=== PATIENT | female | born 1960 | race African-American/Black ===

== ENCOUNTER 2016-12-04 15:01 | Emergency (ER) | payer MEDICARE, OTHER ==
[~2016-12-04] VITALS: Ht 162.6 cm; Wt 136.1 kg
[~2016-12-04 15:01] MED LIST: ACET-704 PO; AMLO10TA2 PO; CARB200T4 PO; GABA-586 PO; VORTIOXETINE 10 MG
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
[2016-12-04] MEDS ORDERED: IV NORMAL SALINE 1000ML BAG 1,000 ML IV ONE (15:45)
[2016-12-04 15:55] LABS: BASO % 1 % (0-3); EOS % 0 % (0-3); HEMATOCRIT 45.7 % (36.0-47.0); HEMOGLOBIN 15.3 g/dL (12.0-15.5); LYMPH % 20 % (24-48); MEAN CORPUSCULAR HEMOGLOBIN 31 pg (25-35); MEAN CORPUSCULAR HGB CONC 33 g/dL (31-37); MEAN CORPUSCULAR VOLUME 94 fL (79-100); MONO % 7 % (0-9); NEUT % 72 % (31-73); PLATELET COUNT 243 x10^3/uL (140-400); RED BLOOD COUNT 4.85 x10^6/uL (3.50-5.40); RED CELL DISTRIBUTION WIDTH 14.8 % (11.5-14.5); WHITE BLOOD COUNT 4.8 x10^3/uL (4.0-11.0)
--- NOTE | 2016-12-04 16:03 | EKG ---
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
[2016-12-04 16:08] LABS: CALCIUM 8.6 mg/dL (8.5-10.1); CREATININE 0.8 mg/dL (0.6-1.0); GFR 90.1; POTASSIUM 3.8 mmol/L (3.5-5.1)
[2016-12-04 16:14] LABS: ALBUMIN 3.3 g/dL (3.4-5.0); ALBUMIN/GLOBULIN RATIO 0.8 (1.0-1.7); TOTAL BILIRUBIN 0.2 mg/dL (0.2-1.0); TOTAL PROTEIN 7.3 g/dL (6.4-8.2)
[2016-12-04 16:41] LABS: NEG OBC UR NEG; POS OBC UR POS
[2016-12-04 16:42] LABS: BILIRUBIN,URINE NEGATIVE (NEG); GLUCOSE,URINE NEGATIVE (NEG); NITRITE,URINE NEGATIVE (NEG); PROTEIN,URINE 30 mg/dL (NEG-TRACE); UROBILINOGEN,URINE 0.2 mg/dL (0.2 mg/dL)
[2016-12-04] MEDS ORDERED: CARBAMAZEPINE 200 MG TABLET. PO ONE (16:45)
[2016-12-04 16:46] LABS: BARBITURATES NEG (NEG); BENZODIAZEPINES NEG (NEG); CANNABINOIDS NEG (NEG); COCAINE NEG (NEG); METHADONE NEG (NEG); OPIATES NEG (NEG); PHENCYCLIDINE NEG (NEG)
[2016-12-04] MEDS ORDERED: CARB200T4 PO (16:49)
[2016-12-04 16:50] LABS: RBC,URINE 0 /HPF (0-2)
[2016-12-04 16:51] LABS: BACTERIA,URINE MANY /HPF (0-FEW); SQUAMOUS EPITHELIAL CELL,UR MANY /LPF
[2016-12-04 17:38] LABS: ETHANOL, URINE NEG (NEG)
[2016-12-04 17:51] VITALS: BP 143/93
== END 2016-12-04 18:03 | disposition home or self-care (01) ==
LOC: ER 15:01
DX: F41.9 Anxiety disorder, unspecified (principal); F32.9 Major depressive disorder, single episode, unspecified; E11.9 Type 2 diabetes mellitus without complications; I10 Essential (primary) hypertension
CPT/HCPCS: 36415; 80053; 80156; 81001; 81025; 83605; 84484; 85027; 93005; 96360; 99285; G0481; J7030

== ENCOUNTER 2017-06-16 17:16 | Emergency (ER) | payer MEDICARE, OTHER ==
[~2017-06-16] VITALS: Ht 152.4 cm; Wt 136.1 kg
[2017-06-16] MEDS ORDERED: diphenhydrAMINE 50 MG/ML VIAL IVP ONE (17:45)
[2017-06-16] MEDS ORDERED: PROCHLORPERAZINE 10 MG/2 ML VIAL. IV ONE (17:45)
[2017-06-16] MEDS ORDERED: IV NORMAL SALINE 1000ML BAG 1,000 ML IV ONE (17:45)
[2017-06-16] MEDS ORDERED: fentaNYL PF VIAL 100 MCG/2 ML VIAL IV ONE (17:45)
--- NOTE | 2017-06-16 17:54 | PHYS DOC ---
Past Medical History Past Medical History: Anxiety, Depression, Hypertension, Seizure Additional Past Medical Histor: stutter Past Surgical History: Hysterectomy, Tonsillectomy, Tubal ligation, Other Additional Past Surgical Histo: gall stone removal Alcohol Use: None Drug Use: None Adult General Chief Complaint Chief Complaint: HEADACHE HPI HPI Patient is a 56 year old female who is brought by EMS with the complaint of headache and left ankle pain. Patient states she has had this headache for about 4 days. It comes and goes. She's had some associated nausea and one episode of vomiting. She's had headaches like this before. Her concern is that if she cannot get rid of the headache, sometimes it makes her have a seizure. She does have a seizure disorder and takes gabapentin and Tegretol. She has not run out of her meds or quit taking them for any reason. Her last seizure was about 2 years ago. She does not drive. Also complains of left ankle pain. She does not recall injuring her ankle. She thinks it was fine when she went to bed last night. This morning, when she is getting out of bed and put her weight on it, it hurt significantly. She also complains of left ankle swelling. She's never had problems with her ankle in the past. She does have chronic knee pain and takes ibuprofen for that. PCP Dr. Giles Review of Systems Review of Systems Constitutional: She has had some chills Eyes: Denies change in visual acuity, redness, or eye pain [] HENT: She has had a sore throat attributed to having a fan on her while she was having her hair done 2 weeks ago Respiratory: Denies cough or shortness of breath [] Cardiovascular: Denies chest pain GI: Denies abdominal pain, nausea, vomiting, bloody stools or diarrhea [] : Denies dysuria or hematuria [] Musculoskeletal: As in history of present illness Integument: Denies rash or skin lesions [] Neurologic: As in history of present illness Current Medications Current Medications Current Medications Medications (Trade) Dose Ordered Sig/Tonia Start Time Stop Time Status Last Admin Dose Admin Diphenhydramine HCl (Benadryl) 25 mg 1X ONCE 06/16/17 17:45 06/16/17 17:46 DC 06/16/17 17:48 25 MG Fentanyl Citrate (Fentanyl 2ml Vial) 75 mcg 1X ONCE 7/16/17 17:45 06/16/17 17:46 DC 06/16/17 17:48 75 MCG Hydralazine HCl (Apresoline) 10 mg 1X ONCE 06/16/17 19:00 06/16/17 19:01 UNV Prochlorperazine Edisylate (Compazine) 10 mg 1X ONCE 06/16/17 17:45 06/16/17 17:46 DC 06/16/17 17:48 10 MG Sodium Chloride 1,000 ml @ 1,000 mls/hr 1X ONCE 06/16/17 17:45 06/16/17 18:44 DC 06/16/17 17:47 1,000 MLS/HR Allergies Allergies Allergies Coded Allergies Type Severity Reaction Last Updated Verified No Known Drug Allergies 08/25/14 No Physical Exam Physical Exam Constitutional: Obese female, alert and mentating normally, no acute distress, does not appear photophobic HENT: Normocephalic, atraumatic, bilateral external ears normal, nose normal. [] Eyes: conjunctiva normal, no discharge. [] Neck: Normal range of motion, no stridor. [] Cardiovascular:Heart rate regular rhythm, no murmur [] Lungs & Thorax: Bilateral breath sounds clear to auscultation [] Abdomen: Bowel sounds normal, soft, no tenderness, no masses, no pulsatile masses. [] Skin: Warm, dry, no erythema, no rash. [] Extremities: Left lower extremity: Knee, calf unremarkable. Patient is morbidly obese and has very large legs including the lower leg, but it does not appear asymmetrical and there is no evidence of "swelling". Left ankle does not appear swollen. It is not warm, not red. There are no skin changes overlying. Some tenderness of the lateral aspect. Foot is unremarkable without swelling, redness , or warmth. No evidence of cellulitis of the foot or ankle. Neurologic: Alert and oriented X 3, normal motor function, normal sensory function, no focal deficits noted. [] Current Patient Data Vital Signs Vital Signs Date Time Temp Pulse Resp B/P (MAP) Pulse Ox O2 Delivery O2 Flow Rate FiO2 06/16/17 17:48 18 96 Room Air 06/16/17 17:20 98.2 81 181/108 (132) 98.2 EKG EKG [] Radiology/Procedures Radiology/Procedures Three-view x-ray of the left ankle read by me. No acute bony abnormality. [] Course & Med Decision Making Course & Med Decision Making Pertinent Labs and Imaging studies reviewed. (See chart for details) 56-year-old male comes by EMS for a headache off and on for the last 4 days and left ankle pain. The patient is alert and joking, appears entirely nontoxic. States she takes a medicine" because people get on my nerves". I advised the patient we could try some IV fluids, some IV headache medication and check out her ankle with some x-rays and she is happy with that plan. 184 recheck patient. She is watching TV, appears comfortable. She states her headache is gone. Her blood pressure remains elevated at 202/104. She is on blood pressure medication and states that she has not run out of it. We will get her blood pressure down a little bit prior to discharge so her blood pressure medication can work when she takes it at home. She is agreeable to that plan. [] Dragon Disclaimer Dragon Disclaimer This electronic medical record was generated, in whole or in part, using a voice recognition dictation system. Departure Departure Impression: Primary Impression: Headache Additional Impressions: Hypertension Left ankle pain Disposition: HOME, SELF-CARE Condition: STABLE Referrals: JO-ANN HDEZ MD (PCP) Patient Instructions: General Headache Without Cause, [id number] Additional Instructions: Today, we gave you some IV fluids and some medication for your headache. When it 's hot out like this, be sure that you're staying well hydrated. Sometimes being dehydrated can cause a headache. Your blood pressure was running high in the emergency department. Be sure you' re taking your blood pressure medications as prescribed. Follow-up with your doctor this week for recheck. Left ankle x-rays were normal. This means there is no bone problem that we could see. For pain, stay off of your ankle, use ice 15-20 minutes out of every 1-2 hours, if it continues to hurt after about a week, recheck with your doctor. Problem Qualifiers VERA ESPINOZA MD Jun 16, 2017 17:54
[2017-06-16] MEDS ORDERED: hydrALAZINE 20 MG/ML VIAL. IVP ONE (19:00)
[2017-06-16 19:15] VITALS: BP 200/99
--- NOTE | 2017-06-17 08:05 | RAD ---
EXAM: Left ankle 3 views. HISTORY: Ankle pain and swelling COMPARISON: None. FINDINGS: Three views of the left ankle are obtained. There is a lucency at the medial corner of the talar dome on the frontal projection. It is less well seen on the other projections. This suggests a subchondral cyst or an osteochondral lesion. There is narrowing of the joint space along the medial mortise with mild medial tilt of the talus. No fractures are identified. There is a prominent os trigonum. Mild soft tissue swelling is noted medially and laterally. IMPRESSION: 1. CT or MRI could assess for an osteochondral lesion versus osteoarthritis along the medial corner of the talar dome. 2. Prominent os trigonum. Correlate clinically.
== END 2017-06-16 19:25 | disposition home or self-care (01) ==
LOC: ER 17:16
DX: R51 Headache (principal); M25.572 Pain in left ankle and joints of left foot; I10 Essential (primary) hypertension; R11.2 Nausea with vomiting, unspecified; G89.29 Other chronic pain; F32.9 Major depressive disorder, single episode, unspecified; F41.9 Anxiety disorder, unspecified; Z90.710 Acquired absence of both cervix and uterus; Z98.51 Tubal ligation status
CPT/HCPCS: 73610; 96361; 96374; 96375; 99284; J0360; J0780; J1200; J3010; J7030

== ENCOUNTER 2017-08-30 18:55 | Emergency (ER) | payer OTHER ==
[~2017-08-30] VITALS: Ht 162.6 cm; Wt 145.1 kg
[2017-08-30 19:59] LABS: BASO % 0 % (0-3); EOS % 0 % (0-3); HEMATOCRIT 39.9 % (36.0-47.0); HEMOGLOBIN 12.8 g/dL (12.0-15.5); LYMPH # 1.9 x10^3/uL (1.0-4.8); LYMPH % 36 % (24-48); MEAN CORPUSCULAR HEMOGLOBIN 31 pg (25-35); MEAN CORPUSCULAR HGB CONC 32 g/dL (31-37); MEAN CORPUSCULAR VOLUME 96 fL (79-100); MONO % 12 % (0-9); NEUT % 52 % (31-73); PLATELET COUNT 311 x10^3/uL (140-400); RED BLOOD COUNT 4.17 x10^6/uL (3.50-5.40); RED CELL DISTRIBUTION WIDTH 14.3 % (11.5-14.5); WHITE BLOOD COUNT 5.3 x10^3/uL (4.0-11.0)
[2017-08-30 20:40] LABS: ANION GAP 7 (6-14); BLOOD UREA NITROGEN 17 mg/dL (7-20); BUN/CREATININE RATIO 15 (6-20); CALCIUM 8.7 mg/dL (8.5-10.1); CARBON DIOXIDE 31 mmol/L (21-32); CHLORIDE 104 mmol/L (98-107); CREATININE 1.1 mg/dL (0.6-1.0); GFR 62.4; GLUCOSE 111 mg/dL (70-99); POTASSIUM 3.8 mmol/L (3.5-5.1); SODIUM 142 mmol/L (136-145)
[2017-08-30 20:46] LABS: ALBUMIN 3.3 g/dL (3.4-5.0); ALBUMIN/GLOBULIN RATIO 0.8 (1.0-1.7); ALK PHOS 201 U/L (46-116); ALT (SGPT) 32 U/L (14-59); AST (SGOT) 28 U/L (15-37); TOTAL BILIRUBIN 0.1 mg/dL (0.2-1.0); TOTAL PROTEIN 7.7 g/dL (6.4-8.2)
[2017-08-30 21:00] VITALS: BP 187/88
--- NOTE | 2017-08-30 21:34 | PHYS DOC ---
Past Medical History Past Medical History: Anxiety, Depression, Hypertension, Seizure Additional Past Medical Histor: stutter Past Surgical History: Hysterectomy, Tonsillectomy, Tubal ligation, Other Additional Past Surgical Histo: gall stone removal Alcohol Use: None Drug Use: None Adult General Chief Complaint Chief Complaint: SEIZURE HPI HPI Patient is a 56 year old female who presents here today secondary to having a seizure earlier. Patient reports that she was visiting her son at [employer] she was trying to get him to meet her at some place that they have been together however she reports her son with a no-show when she got very upset about it. Patient reports that she thinks that triggered her seizure. Patient witnessed seizure by people at the [employer] as per EMS. Patient denies any symptomatology otherwise. Patient denies any recent fevers shakes chills nausea vomiting diarrhea chest pain shortness of breath cough cold rhinorrhea. Patient reports she has been compliant with her medications. Patient reports she does have a history seizure disorder in the past and usually it started when she gets upset. Review of systems Constitutional: Denies fever or chills Eyes: Denies change in visual acuity, redness, or eye pain All other review systems are negative except as documented in the history of present illness portion. Physical exam Constitutional: Well developed, well nourished, no acute distress, non-toxic appearance. HENT: Normocephalic, atraumatic, bilateral external ears normal, oropharynx moist, no oral exudates, nose normal. Eyes: conjunctiva normal, no discharge. Neck: Normal range of motion, no tenderness, supple, no stridor. Cardiovascular:Heart rate regular rhythm, Lungs & Thorax: Bilateral breath sounds clear to auscultation Abdomen: Bowel sounds normal, soft, no tenderness, no masses, no pulsatile masses. Skin: Warm, dry, Back: No tenderness, Extremities: No tenderness, no cyanosis, Neurologic: Alert and oriented X 3, normal motor function, normal sensory function, no focal deficits noted. Psychologic: Affect normal, judgement normal, mood normal. Assessment and plan This is a 56-year-old female who presents here today with a seizure disorder was likely triggered by anxiety and stress. Upon arrival to the ER the patient was alert awake and oriented 3 with no postictal phase. Patient's blood pressure was elevated and she did appear to be anxious. Patient has been tearful throughout the initial part of her evaluation. Patient was given 1 mg of IV Ativan with significant improvement in her anxiety and stress level. Patient's blood pressure initially was markedly elevated however after the Ativan was given the patient's blood pressure has improved significantly. Patient's currently resting comfortably in the ED, eating dinner, and feels well to go home. Patient's labs were all within normal limits. Patient normal CBC, PT, troponin, Tegretol level. Patient being discharged home in stable condition at this time. Current Medications Current Medications Current Medications Medications (Trade) Dose Ordered Sig/Tonia Start Time Stop Time Status Last Admin Dose Admin Lorazepam (Ativan) 1 mg 1X ONCE 08/30/17 19:45 08/30/17 19:46 DC 08/30/17 19:45 1 MG Allergies Allergies Allergies Coded Allergies Type Severity Reaction Last Updated Verified No Known Drug Allergies 08/25/14 No Current Patient Data Vital Signs Vital Signs Date Time Temp Pulse Resp B/P (MAP) Pulse Ox O2 Delivery O2 Flow Rate FiO2 08/30/17 19:05 98.1 98 18 230/127 (161) 98 Room Air 98.1 Lab Values Laboratory Tests Test 08/30/17 19:45 White Blood Count 5.3 x10^3/uL (4.0-11.0) Red Blood Count 4.17 x10^6/uL (3.50-5.40) Hemoglobin 12.8 g/dL (12.0-15.5) Hematocrit 39.9 % (36.0-47.0) Mean Corpuscular Volume 96 fL (79-100) Mean Corpuscular Hemoglobin 31 pg (25-35) Mean Corpuscular Hemoglobin Concent 32 g/dL (31-37) Red Cell Distribution Width 14.3 % (11.5-14.5) Platelet Count 311 x10^3/uL (140-400) Neutrophils (%) (Auto) 52 % (31-73) Lymphocytes (%) (Auto) 36 % (24-48) Monocytes (%) (Auto) 12 % (0-9) H Eosinophils (%) (Auto) 0 % (0-3) Basophils (%) (Auto) 0 % (0-3) Neutrophils # (Auto) 2.8 x10^3uL (1.8-7.7) Lymphocytes # (Auto) 1.9 x10^3/uL (1.0-4.8) Monocytes # (Auto) 0.6 x10^3/uL (0.0-1.1) Eosinophils # (Auto) 0.0 x10^3/uL (0.0-0.7) Basophils # (Auto) 0.0 x10^3/uL (0.0-0.2) Sodium Level 142 mmol/L (136-145) Potassium Level 3.8 mmol/L (3.5-5.1) Chloride Level 104 mmol/L (98-107) Carbon Dioxide Level 31 mmol/L (21-32) Anion Gap 7 (6-14) Blood Urea Nitrogen 17 mg/dL (7-20) Creatinine 1.1 mg/dL (0.6-1.0) H Estimated GFR (Cockcroft-Gault) 62.4 BUN/Creatinine Ratio 15 (6-20) Glucose Level 111 mg/dL (70-99) H Calcium Level 8.7 mg/dL (8.5-10.1) Total Bilirubin 0.1 mg/dL (0.2-1.0) L Aspartate Amino Transferase (AST) 28 U/L (15-37) Alanine Aminotransferase (ALT) 32 U/L (14-59) Alkaline Phosphatase 201 U/L (46-116) H Total Protein 7.7 g/dL (6.4-8.2) Albumin 3.3 g/dL (3.4-5.0) L Albumin/Globulin Ratio 0.8 (1.0-1.7) L Carbamazepine (Tegretol) Level 11.7 mcg/mL (4.0-12.0) Carbamazepine Last Dose Date Pending Carbamazepine Last Dose Time Pending Laboratory Tests 08/30/17 19:45 Laboratory Tests 08/30/17 19:45 EKG EKG [] Radiology/Procedures Radiology/Procedures [] Course & Med Decision Making Course & Med Decision Making Pertinent Labs and Imaging studies reviewed. (See chart for details) [] Dragon Disclaimer Dragon Disclaimer This electronic medical record was generated, in whole or in part, using a voice recognition dictation system. Departure Departure Impression: Primary Impression: Seizure Additional Impressions: Anxiety Hypertension Disposition: 01 HOME, SELF-CARE Condition: IMPROVED Referrals: JO-ANN HDEZ MD (PCP) Patient Instructions: Anxiety and Panic Attacks, Hypertension, Seizure Disorder , Child, Generalized Tonic-Clonic Problem Qualifiers GERRY FUCHS MD Aug 30, 2017 21:34
== END 2017-08-30 21:51 | disposition home or self-care (01) ==
LOC: ER 18:55
DX: R56.9 Unspecified convulsions (principal); F41.9 Anxiety disorder, unspecified; I10 Essential (primary) hypertension
CPT/HCPCS: 36415; 80053; 80156; 85025; 96374; 99284; J2060

== ENCOUNTER 2017-12-31 17:35 | Emergency (ER) | payer OTHER ==
[2017-12-31 18:02] LABS: BILIRUBIN,URINE NEGATIVE (NEG); CLARITY,URINE CLOUDY; COLOR,URINE YELLOW; GLUCOSE,URINE NEGATIVE (NEG); NITRITE,URINE POSITIVE (NEG); PH,URINE 5.5; PROTEIN,URINE 100 mg/dL (NEG-TRACE); UROBILINOGEN,URINE 0.2 mg/dL (0.2 mg/dL)
[2017-12-31 18:10] LABS: BACTERIA,URINE MODERATE /HPF (0-FEW); HYALINE CASTS, URINE FEW /HPF; SQUAMOUS EPITHELIAL CELL,UR MOD /LPF; WBC,URINE >40 /HPF (0-4)
[2017-12-31 18:44] LABS: ADD MAN DIFF? NO
[2017-12-31 18:54] LABS: BASO # 0.1 x10^3/uL (0.0-0.2); BASO % 1 % (0-3); EOS % 0 % (0-3); HEMATOCRIT 42.5 % (36.0-47.0); LYMPH # 1.8 x10^3/uL (1.0-4.8); LYMPH % 20 % (24-48); MEAN CORPUSCULAR HEMOGLOBIN 30 pg (25-35); MEAN CORPUSCULAR HGB CONC 33 g/dL (31-37); MEAN CORPUSCULAR VOLUME 92 fL (79-100); MONO # 0.7 x10^3/uL (0.0-1.1); MONO % 8 % (0-9); NEUT # 6.4 x10^3uL (1.8-7.7); NEUT % 72 % (31-73); PLATELET COUNT 332 x10^3/uL (140-400); RED BLOOD COUNT 4.61 x10^6/uL (3.50-5.40); RED CELL DISTRIBUTION WIDTH 15.4 % (11.5-14.5); WHITE BLOOD COUNT 8.9 x10^3/uL (4.0-11.0)
[2017-12-31 18:55] LABS: ANION GAP 8 (6-14); BLOOD UREA NITROGEN 21 mg/dL (7-20); BUN/CREATININE RATIO 26 (6-20); CALCIUM 8.6 mg/dL (8.5-10.1); CARBON DIOXIDE 27 mmol/L (21-32); CHLORIDE 103 mmol/L (98-107); CREATININE 0.8 mg/dL (0.6-1.0); GFR 89.8; GLUCOSE 120 mg/dL (70-99); POTASSIUM 4.2 mmol/L (3.5-5.1); SODIUM 138 mmol/L (136-145)
[2017-12-31 19:09] LABS: ALBUMIN 3.6 g/dL (3.4-5.0); ALBUMIN/GLOBULIN RATIO 0.8 (1.0-1.7); ALK PHOS 182 U/L (46-116); ALT (SGPT) 29 U/L (14-59); AST (SGOT) 22 U/L (15-37); LIPASE 127 U/L (73-393); TOTAL BILIRUBIN < 0.1 mg/dL (0.2-1.0); TOTAL PROTEIN 7.9 g/dL (6.4-8.2)
[2017-12-31] MEDS ORDERED: CONTRAST GIVEN MC ×2 (19:15)
[2017-12-31] MEDS: IOHEXOL 300 MG/ML 100ML VIAL. IV ×2 (19:17)
== END 2017-12-31 20:50 | disposition home or self-care (01) ==
LOC: ER 17:35
DX: N39.0 Urinary tract infection, site not specified (principal); I10 Essential (primary) hypertension; Z90.710 Acquired absence of both cervix and uterus; Z98.51 Tubal ligation status
CPT/HCPCS: 36415; 74177; 80053; 81001; 83690; 85025; 87086; 87186; 96365; 96375; 99285-25; J0690; J2060; Q9967

== ENCOUNTER → 2019-03-18 | Outpatient (CLI) | payer OTHER ==
[2017-12-31 20:24] VITALS: BP 169/92
[~2019-03-18] MED LIST changes: -AMLO10TA2 PO; +AMLO10TA8 PO; +CEPH-264 PO; -GABA-586 PO; +GABA300C18 PO
--- NOTE | 2019-03-18 16:55 | KCIC ---
BILATERAL SCREENING MAMMOGRAM, 3-D History: Routine screening. Comparison: None. This is a baseline examination. Technique: MLO and CC digital tomosynthesis (3D) images obtained. Radiologist reviewed these images on dedicated workstation. Findings: Breast Tissue Density A : The breasts are almost entirely fatty. There are no dominant masses, suspicious microcalcifications, or architectural distortion. IMPRESSION: No mammographic evidence of malignancy. Recommend routine screening. BI-RADS category 1: Negative. The images were reviewed with computer-aided detection. Patient information is entered into reminder system with a target due date for the next screening mammogram. Mammography is the most sensitive method for finding small breast cancers, but it does not detect them all and is not a substitute for careful clinical examination. A negative mammogram does not negate a clinically suspicious finding and should not result in delay in biopsying a clinically suspicious abnormality. "Our facility is accredited by the [employer] Mammography Program." Electronically signed by: Brent Schwartz MD (03/18/2019 4:52 PM) [id number]
== END | disposition home or self-care (01) ==
LOC: KCIC MAMMO 12:25
PROVIDERS: ATTEND Pediatrics
DX: Z12.31 Encounter for screening mammogram for malignant neoplasm of breast (principal)
CPT/HCPCS: 77063; 77067

== ENCOUNTER 2019-12-03 13:50 | Emergency (ER) | payer OTHER, MEDICAID ==
[~2019-12-03] VITALS: Ht 160 cm; Wt 135.2 kg
[2019-12-03] MEDS ORDERED: BUTORPHANOL 2 MG/ML VIAL. IM ONE (14:00)
[2019-12-03] MEDS ORDERED: ONDANSETRON ODT 4 MG TAB.RAPDIS. PO ONE (14:00)
[2019-12-03] MEDS ORDERED: LORazepam 0.5 MG TABLET PO ONE (14:00)
[2019-12-03 14:30] VITALS: BP 138/88
[2019-12-03] MEDS ORDERED: GABA600T PO (14:45)
--- NOTE | 2019-12-03 14:46 | PHYS DOC ---
Past Medical History Past Medical History: Gallstones, Hypertension, Seizure, Other Additional Past Medical Histor: stutter, NEUROPATHY Past Surgical History: Hysterectomy, Tubal ligation, Other Additional Past Surgical Histo: 'LARGE COLON RESECTION' Alcohol Use: None Drug Use: None Adult General Chief Complaint Chief Complaint: HEADACHE HPI HPI Patient is a 59-year-old female who presents with complaint of headache that started last night. She rates pain at a 10 out of 10 and describes it as throbbing. She does complain of some photophobia. She denies any nausea or vomiting. She also denies any diarrhea. Patient has had no fever. She denies chest pain or shortness of breath. Patient also indicates that she ran out of her gabapentin a couple of days ago that she takes for neuropathy and se izures.[] Review of Systems Review of Systems Constitutional: Denies fever or chills [] Respiratory: Denies cough or shortness of breath [] Cardiovascular: No additional information not addressed in HPI [] GI: Denies abdominal pain, nausea, vomiting or diarrhea [] Integument: Denies rash or skin lesions [] Neurologic: Complains of headache without focal weakness or sensory changes [] All other systems were reviewed and found to be within normal limits, except as documented in this note. Current Medications Current Medications Current Medications Medications (Trade) Dose Ordered Sig/Tonia Start Time Stop Time Status Last Admin Dose Admin Butorphanol Tartrate (Stadol) 2 mg 1X ONCE 12/03/19 14:00 12/03/19 14:14 DC 12/03/19 14:20 2 MG Lorazepam (Ativan) 1 mg 1X ONCE 12/03/19 14:00 12/03/19 14:14 DC 12/03/19 14:20 1 MG Ondansetron HCl (Zofran Odt) 4 mg 1X ONCE 12/03/19 14:00 12/03/19 14:14 DC 12/03/19 14:19 4 MG Allergies Allergies Allergies Coded Allergies Type Severity Reaction Last Updated Verified No Known Drug Allergies 08/25/14 No Physical Exam Physical Exam Constitutional: Well developed, well nourished, no acute distress, non-toxic appearance. [] HENT: Normocephalic, atraumatic, bilateral external ears normal, oropharynx moist, no oral exudates, nose normal. [] Eyes: PERRLA, EOMI, conjunctiva normal, no discharge. [] Neck: Normal range of motion, no tenderness, supple. [] Cardiovascular: Regular rate and rhythm[] Lungs & Thorax: Bilateral breath sounds clear to auscultation [] Abdomen: Bowel sounds normal, soft, no tenderness. [] Skin: Warm, dry, no erythema, no rash. [] Extremities: No tenderness, no cyanosis, no clubbing, ROM intact. [] Neurologic: Awake and alert, no focal deficits noted. [] Current Patient Data Vital Signs Vital Signs Date Time Temp Pulse Resp B/P (MAP) Pulse Ox O2 Delivery O2 Flow Rate FiO2 12/03/19 14:20 18 94 Room Air 12/03/19 13:51 98.0 110 162/92 (115) 98.0 EKG EKG [] Radiology/Procedures Radiology/Procedures [] Course & Med Decision Making Course & Med Decision Making Pertinent Labs and Imaging studies reviewed. (See chart for details) [] Dragon Disclaimer Dragon Disclaimer This electronic medical record was generated, in whole or in part, using a voice recognition dictation system. Departure Departure Impression: Primary Impression: Headache Additional Impression: Peripheral neuropathy Disposition: HOME, SELF-CARE Condition: STABLE Referrals: LATOYA LOPEZ MD (PCP) Patient Instructions: Migraine Headache, Pain, Neuropathic Scripts Gabapentin (NEURONTIN) 600 Mg Tablet 600 MG PO TID for NEUROGENIC PAIN, #30 TAB Prov: JO-ANN BRAND Jr. DO 12/03/19 Problem Qualifiers Primary Impression: Headache Headache type: unspecified Headache chronicity pattern: acute headache Intractability: not intractable Qualified Codes: R51 - Headache Additional Impression: Peripheral neuropathy Peripheral neuropathy type: polyneuropathy, unspecified Qualified Codes: G62.9 - Polyneuropathy, unspecified JO-ANN BRAND Jr. DO Dec 03, 2019 14:46
== END 2019-12-03 14:59 | disposition home or self-care (01) ==
LOC: ER 13:50
DX: R51 Headache (principal); G62.9 Polyneuropathy, unspecified; I10 Essential (primary) hypertension; Z90.710 Acquired absence of both cervix and uterus; Z98.51 Tubal ligation status
CPT/HCPCS: 96372; 99284; Q0162

== ENCOUNTER 2020-12-17 13:15 | Emergency (ER) | payer OTHER, MEDICAID ==
[~2020-12-17] VITALS: Ht 162.6 cm; Wt 147.7 kg
[~2020-12-17 13:15] MED LIST changes: +AMLO-187 PO; -AMLO10TA8 PO; +GABA600T PO
--- NOTE | 2020-12-17 15:02 | RAD ---
EXAMINATION: XR CHEST 1V CLINICAL HISTORY: Shortness of breath EXAM DATE/TIME: 12/17/2020 2:26 PM COMPARISON: 08/25/2014 FINDINGS: Lines, Tubes, and Devices: None. Cardiomediastinal Silhouette: Normal heart size. Aortic atherosclerotic calcification. Lungs and Pleura: No evidence of focal airspace consolidation or pleural effusion. Pulmonary vasculat ure unremarkable. Right parahilar old calcified granulomas hazy opacities in the peripheral bilateral mid to lower lung zones likely related to increased soft tissue attenuation. Bones and Soft Tissues: No acute osseous abnormality. IMPRESSION: No evidence of acute cardiopulmonary abnormality or significant interval change. Electronically signed by: Wilfrido Arredondo DO (12/17/2020 2:59 PM) [id number]
[2020-12-17 16:20] LABS: BASO % 1 % (0-3); EOS % 0 % (0-3); HEMATOCRIT 44.3 % (36.0-47.0); HEMOGLOBIN 14.8 g/dL (12.0-15.5); LYMPH # 1.3 x10^3/uL (1.0-4.8); LYMPH % 17 % (24-48); MEAN CORPUSCULAR HEMOGLOBIN 32 pg (25-35); MEAN CORPUSCULAR HGB CONC 33 g/dL (31-37); MEAN CORPUSCULAR VOLUME 96 fL (79-100); MONO # 0.7 x10^3/uL (0.0-1.1); MONO % 8 % (0-9); NEUT # 5.8 x10^3/uL (1.8-7.7); NEUT % 74 % (31-73); PLATELET COUNT 294 x10^3/uL (140-400); RED BLOOD COUNT 4.62 x10^6/uL (3.50-5.40); RED CELL DISTRIBUTION WIDTH 15.5 % (11.5-14.5); WHITE BLOOD COUNT 7.9 x10^3/uL (4.0-11.0)
[2020-12-17 16:44] LABS: INFLUENZA A PATIENT NEGATIVE (NEGATIVE); INFLUENZA B PATIENT NEGATIVE (NEGATIVE)
[2020-12-17 17:11] LABS: CALCIUM 8.6 mg/dL (8.5-10.1); CREATININE 0.9 mg/dL (0.6-1.0); GFR 77.5; POTASSIUM 4.1 mmol/L (3.5-5.1)
[2020-12-17 17:17] LABS: ALBUMIN 3.2 g/dL (3.4-5.0); ALBUMIN/GLOBULIN RATIO 0.7 (1.0-1.7); TOTAL BILIRUBIN 0.1 mg/dL (0.2-1.0); TOTAL PROTEIN 7.6 g/dL (6.4-8.2)
--- NOTE | 2020-12-17 17:40 | PHYS DOC ---
Past Medical History Past Medical History: Cancer, Gallstones, Hypertension, Seizure, Other Additional Past Medical Histor: stutter, NEUROPATHY,BOWEL CA Past Surgical History: Hysterectomy, Tonsillectomy, Tubal ligation, Other Additional Past Surgical Histo: LG COLON RESECTION,KIDNEY STENT Smoking Status: Former Smoker Alcohol Use: None Drug Use: None Adult General Chief Complaint Chief Complaint: SHORTNESS OF BREATH HPI HPI Patient is a 60 year old with past medical history of hypertension presents emergency department complaining of new onset of shortness of breath. Patient states that her last 24 hours has noted increasing sensation of difficulty breathing especially when she walks or attempts ambulate. States that she has not been able to catch her breath. Denies any associated worsening with lying flat or ambulation. States that she is a she is wheezing but she has not had any history of asthma. Denies any fever, chills, nausea or vomiting Review of Systems Review of Systems Constitutional: Denies fever or chills [] Eyes: Denies change in visual acuity, redness, or eye pain [] HENT: Denies nasal congestion or sore throat [] Respiratory: Denies cough or shortness of breath [] Cardiovascular: No additional information not addressed in HPI [] GI: Denies abdominal pain, nausea, vomiting, bloody stools or diarrhea [] : Denies dysuria or hematuria [] Musculoskeletal: Denies back pain or joint pain [] Integument: Denies rash or skin lesions [] Neurologic: Denies headache, focal weakness or sensory changes [] Endocrine: Denies polyuria or polydipsia [] All other systems were reviewed and found to be within normal limits, except as documented in this note. Allergies Allergies Allergies Coded Allergies Type Severity Reaction Last Updated Verified No Known Drug Allergies 08/25/14 No Physical Exam Physical Exam Constitutional: Well developed, well nourished, no acute distress, non-toxic appearance. [] HENT: Normocephalic, atraumatic, bilateral external ears normal, oropharynx moist, no oral exudates, nose normal. [] Eyes: PERRLA, EOMI, conjunctiva normal, no discharge. [] Neck: Normal range of motion, no tenderness, supple, no stridor. [] Cardiovascular:Heart rate regular rhythm, no murmur [] Lungs & Thorax: Bilateral breath sounds clear to auscultation patient noted to have increased muscle movement however it is difficult to determine whether this is behavioral or functional at this time. Patient does not have any audible wheezes when she attempts to squeeze. Abdomen: Bowel sounds normal, soft, no tenderness, no masses, no pulsatile masses. [] Skin: Warm, dry, no erythema, no rash. [] Back: No tenderness, no CVA tenderness. [] Extremities: No tenderness, no cyanosis, no clubbing, ROM intact, no edema. [] Neurologic: Alert and oriented X 3, normal motor function, normal sensory function, no focal deficits noted. [] Psychologic: Affect normal, judgement normal, mood normal. [] Current Patient Data Vital Signs Vital Signs Date Time Temp Pulse Resp B/P (MAP) Pulse Ox O2 Delivery O2 Flow Rate FiO2 12/17/20 17:04 92 21 163/97 (119) 94 Room Air 12/17/20 14:15 98.9 98.9 Lab Values Laboratory Tests Test 12/17/20 16:10 12/17/20 16:14 12/17/20 16:42 White Blood Count 7.9 x10^3/uL (4.0-11.0) Red Blood Count 4.62 x10^6/uL (3.50-5.40) Hemoglobin 14.8 g/dL (12.0-15.5) Hematocrit 44.3 % (36.0-47.0) Mean Corpuscular Volume 96 fL (79-100) Mean Corpuscular Hemoglobin 32 pg (25-35) Mean Corpuscular Hemoglobin Concent 33 g/dL (31-37) Red Cell Distribution Width 15.5 % (11.5-14.5) H Platelet Count 294 x10^3/uL (140-400) Neutrophils (%) (Auto) 74 % (31-73) H Lymphocytes (%) (Auto) 17 % (24-48) L Monocytes (%) (Auto) 8 % (0-9) Eosinophils (%) (Auto) 0 % (0-3) Basophils (%) (Auto) 1 % (0-3) Neutrophils # (Auto) 5.8 x10^3/uL (1.8-7.7) Lymphocytes # (Auto) 1.3 x10^3/uL (1.0-4.8) Monocytes # (Auto) 0.7 x10^3/uL (0.0-1.1) Eosinophils # (Auto) 0.0 x10^3/uL (0.0-0.7) Basophils # (Auto) 0.0 x10^3/uL (0.0-0.2) Influenza Type A Antigen Negative (NEGATIVE) Influenza Type B Antigen Negative (NEGATIVE) Sodium Level 144 mmol/L (136-145) Potassium Level 4.1 mmol/L (3.5-5.1) Chloride Level 106 mmol/L (98-107) Carbon Dioxide Level 30 mmol/L (21-32) Anion Gap 8 (6-14) Blood Urea Nitrogen 14 mg/dL (7-20) Creatinine 0.9 mg/dL (0.6-1.0) Estimated GFR (Cockcroft-Gault) 77.5 BUN/Creatinine Ratio 16 (6-20) Glucose Level 116 mg/dL (70-99) H Calcium Level 8.6 mg/dL (8.5-10.1) Total Bilirubin 0.1 mg/dL (0.2-1.0) L Aspartate Amino Transferase (AST) 13 U/L (15-37) L Alanine Aminotransferase (ALT) 21 U/L (14-59) Alkaline Phosphatase 166 U/L (46-116) H Creatine Kinase 74 U/L (26-192) Troponin I Quantitative < 0.017 ng/mL (0.000-0.055) CR-Bjz-L-Type Natriuretic Peptide 122 pg/mL (0-124) Total Protein 7.6 g/dL (6.4-8.2) Albumin 3.2 g/dL (3.4-5.0) L Albumin/Globulin Ratio 0.7 (1.0-1.7) L Laboratory Tests 12/17/20 16:10 Laboratory Tests 12/17/20 16:42 EKG EKG [] Radiology/Procedures Radiology/Procedures [] Course & Med Decision Making Course & Med Decision Making Pertinent Labs and Imaging studies reviewed. (See chart for details) 60-year-old female with nonspecific complaint of shortness of breath without any specific findings on exam. Will perform an ACS work-up and evaluation to make sure there is no evidence of underlying congestive heart failure and reevaluate. 17:39 -patient care delayed secondary to caring for a separate critically ill patient. Patient lab and x-ray reviewed without any significant acute abnormality. No evidence of acute congestive heart failure, viral pneumonia, asthma, myocardial infarction or other severe abnormality. At this time feel the patient be safely discharged Susanneon Disclaimer Dragon Disclaimer This electronic medical record was generated, in whole or in part, using a voice recognition dictation system. Departure Departure Impression: Primary Impression: Anxiety Disposition: 01 DC HOME SELF CARE/HOMELESS Condition: GOOD Referrals: LATOYA LOPEZ MD (PCP) Patient Instructions: Anxiety and Panic Attacks Additional Instructions: EMERGENCY DEPARTMENT GENERAL DISCHARGE INSTRUCTIONS Thank you for coming to [facility] Emergency Department (ED) today and trusting us with you care. We trust that you had a positive experience in our Emergency Department. If you wish to speak to the department management, you may call the Director at [phone]. YOUR FOLLOW UP INSTRUCTIONS ARE FOLLOWS: 1. Do you have a private Doctor? If you do not have a private doctor, please ask for a resource list of physicians or clinics that may be able to assist you with follow up care. 2. The Emergency Physicain has interpreted your x-rays. The X-Ray specialist will also review them. If there is a change in the findings, you will be notified in 48 hours when at all possible. 3. A lab test or culture has been done, your results will be reviewed and you will be notified if you need a change in treatment. ADDITIONAL INSTRUCTIONS AND INFORMATION: 1. Your care today has been supervised by a physician who is specially trained in emergency care. Many problems require more than one evaluation for a complete diagnosis and treatment. We recommend that you schedule your follow up appointment as recommended to ensure complete treatment of you illness or injury. If you are unable to obtain follow up care and continue to have a problem, or if your condition worsens, we recommend that you return to the ED. 2. We are not able to safely determine your condition over the phone nor are we able to give sound medical advice over the phone. For these safety reasons, if you call for medical advice we will ask you to come to the ED for further evaluation. 3. If you have any questions regarding these discharge instructions please call the ED at [phone]. SAFETY INFORMATION: In the interest of safety, wellness, and injury prevention; we encourage you to wear your sealbelt, if you smoke; quite smoking, and we encourage family to use a protec tive helmet for bicycling and other sporting events that present an increased risk for head injury. IF YOUR SYMPTOMS WORSEN OR NEW SYMPTOMS DEVELOP, OR YOU HAVE CONCERNS ABOUT YOUR CONDITION; OR IF YOUR CONDITION WORSENS WHILE YOU ARE WAITING FOR YOUR FOLLOW UP APPOINTMENT; EITHER CONTACT YOUR PRIMARY CARE DOCTOR, THE PHYSICIAN WHOSE NAME AND NUMBER YOU WERE GIVEN, OR RETURN TO THE ED IMMEDIATELY. DONNA QUIROZ MD Dec 17, 2020 17:40
--- NOTE | 2020-12-17 17:58 | EKG ---
[facility] [address] [place] [address] Test Date: 2020-12-17 Test Time: 14:32:30 Pat Name: NEY ARTIS Department: Room: Gender: F Cannoneer: : 1960 Requested By: DONNA QUIROZ Order Number: [id number] Reading MD: Measurements Intervals [place]er Rate: 110 P: -86 AL: 166 QRS: 44 QRSD: 78 T: 47 QT: 372 QTc: 510 Interpretive Statements SINUS TACHYCARDIA OTHERWISE NORMAL ECG RI6.02 Compared to ECG 12/17/2020 14:30:12 T-wave abnormality no longer present
[2020-12-17 18:14] VITALS: BP 162/88
--- NOTE | 2020-12-19 09:58 | NUR ---
IP: Informed pt of negative COVID test. Pt verbalized understanding.
== END 2020-12-17 18:59 | disposition home or self-care (01) ==
LOC: ER 13:15
DX: F41.9 Anxiety disorder, unspecified (principal); R06.02 Shortness of breath; Z20.828 Contact with and (suspected) exposure to other viral communicable diseases; I10 Essential (primary) hypertension; Z87.891 Personal history of nicotine dependence; Z95.5 Presence of coronary angioplasty implant and graft
CPT/HCPCS: 36415; 71045; 80053; 82550; 83880; 84484; 85025; 87804; 93005; 99285; C9803; U0003